=== PATIENT | male | born 1975 | race Two or more races ===

== ENCOUNTER 2017-04-06 08:39 | Observation (INO) | payer OTHER ==
[2017-04-06] MEDS ORDERED: Morphine INJ* 4 MG/ML 1 ML CARPUJECT IV ONE ×2 (09:33→10:41)
[2017-04-06] MEDS ORDERED: Ondansetron INJ* 2 MG/ML VIAL IV ONE ×2 (09:33→10:44)
[2017-04-06] MEDS ORDERED: NS 0.9% 1000 ML* 1,000 ML IV ONE (09:33)
[2017-04-06 09:57] LABS: Hematocrit 39 % (42-52); Hemoglobin 13.4 g/dl (14.0-18.0); Mean Corpuscular HGB Conc 34 g/dl (31-36); Mean Corpuscular Hemoglobin 28 pg (27-31); Mean Corpuscular Volume 82 fL (80-94); Mean Platelet Volume 8 um3 (7.4-10.4); Red Blood Count 4.81 10^6/ul (4.0-5.4); Red Cell Distribution Width 14 % (10.5-15); White Blood Count 8.5 10^3/ul (3.5-10.8)
[2017-04-06 10:37] LABS: BUN/Creatinine Ratio 26.2 (8-20); Calcium 9.1 mg/dL (8.6-10.3); EGFR African American 186.4 (>60); Globulin 3.2 g/dL (2-4); Potassium 3.8 mmol/L (3.5-5.0); Total Bilirubin 0.4 mg/dL (0.2-1.0); Total Protein 7.2 g/dL (6.4-8.9)
--- NOTE | 2017-04-06 11:11 | RAD ---
Indication: Chest pain. Comparison: October 27, 2015 CT abdomen. Technique: Upright AP 1055 hours Report: No focal pulmonary lesion, compelling alveolar consolidation, pleural effusion, pneumothorax. Top normal heart size without significant change. RIGHT and LEFT epicardial fat pads noted. Unremarkable central pulmonary vasculature and mediastinal contours. IMPRESSION: No evidence for acute intrathoracic disease.
--- NOTE | 2017-04-06 12:22 | RAD ---
INDICATION: Right inguinal pain and swelling. COMPARISON: There are no prior studies available for comparison. TECHNIQUE: Multiple real-time images of the testicles were obtained including color Doppler images and Doppler tracings. FINDINGS: The testicles are normal in size, shape and echogenicity. The right testicle measured 4.0 x 2.2 x 2.9 cm and the left testicle measured 4.8 x 2.3 x 3.2 cm. No intratesticular mass is seen. There is symmetric vascular flow within both testicles. There is a 6 mm left epididymal cyst present. In the right inguinal region corresponding to the patient's pain and lump there is a hypoechoic structure measuring 0.5 x 1.0 x 0.5 cm in size. No hernia is seen. IMPRESSION: 1. NO EVIDENCE FOR TESTICULAR TORSION OR EPIDIDYMITIS. 2. THERE IS A SMALL HYPOECHOIC MASS IN THE RIGHT INGUINAL REGION CORRESPONDING TO THE PATIENT'S PAIN AND PALPABLE LUMP. RECOMMEND CLINICAL CORRELATION AND FOLLOW-UP.
[2017-04-06 12:55] LABS: Urine Bilirubin Negative (Negative); Urine Glucose Negative (Negative); Urine Nitrite Negative (Negative)
--- NOTE | 2017-04-06 14:13 | ED ---
Jayden Freeman Thomas, scribed for Dean Raygoza MD on 04/06/17 at 0944 . Abdominal Pain/Male - HPI Summary HPI Summary: The pt is a 41 y/o M presenting to the ED c/o sudden-onset right groin pain s/p an injury today at 03:15 in which he was bending over to lift a 5-pound chain at work and heard a pop. He noticed a golf ball-sized mass in his right inguinal canal that he attempted to reduce, although this caused severe pain. The pain is constant. The pt rates the pain 6/10. The pain is aggravated by palpation and alleviated by nothing. 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 Pt additionally c/o swelling to his testicle and urinary urgency. PMHx: chronic knee pain, chronic back pain, BPH. PSHx: cholecystectomy. SHx: former smoker, no alcohol use. FHx: [place] (two uncles and grandfather in their 50s). 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 He is accompanied by his . - History of Current Complaint Chief Complaint: EDAbdPain Stated Complaint: ABD PAIN/BUMP ON GROIN Time Seen by Provider: 04/06/17 09:25 Hx Obtained From: Patient, Family/Furnace Converter - is in the room Onset/Duration: Sudden Onset, Lasting Hours - onset today at 03:15, Still Present Severity Currently: Moderate Pain Intensity: 6 Pain Scale Used: 0-10 Numeric Location: Groin - right groin Aggravating Factor(s): Other: - Palpation Alleviating Factor(s): Nothing Associated Signs And Symptoms: Positive: Other - Testicular swelling, urinary urgency - Allergies/Home Medications Allergies/Adverse Reactions: Allergies Allergy/AdvReac Type Severity Reaction Status Date / Time Lidocaine [From Lidoderm] Allergy Rash Verified 04/06/17 09:01 PMH/Surg Hx/FS Hx/Imm Hx Previously Healthy: No Endocrine/Hematology History: Denies: Hx Diabetes Cardiovascular History: Denies: Hx Hypertension Musculoskeletal History: Reports: Other Musculoskeletal History - Chronic knee pain, chronic back pain - Surgical History Surgery Procedure, Year, and Place: cholecystectomy Infectious Disease History: No Infectious Disease History: Denies: Traveled Outside the [place] in Last 30 Days - Family History Known Family History: Positive: Other - [place] (two uncles and grandfather in their 50s) - Social History Alcohol Use: Rare Substance Use Type: Reports: None Hx Tobacco Use: Yes Smoking Status (MU): Former Smoker Review of Systems Negative: Fever Positive: Abdominal Pain - Sudden-onset R groin pain when lifting 5-pound chain today at 03:15 Positive: urgency, other - Testicular swelling All Other Systems Reviewed And Are Negative: Yes Physical Exam Triage Information Reviewed: Yes Vital Signs On Initial Exam: Initial Vitals Temp Pulse Resp BP Pulse Ox 96.8 F 75 16 119/92 98 04/06/17 08:50 04/06/17 08:50 04/06/17 08:50 04/06/17 08:50 04/06/17 08:50 Vital Signs Reviewed: Yes Appearance: Positive: Well-Appearing, No Pain Distress Skin: Positive: Dry Head/Face: Positive: Normal Head/Face Inspection Eyes: Positive: EOMI, DENA ENT: Positive: Normal ENT inspection Neck: Positive: Nontender Respiratory/Lung Sounds: Positive: Clear to Auscultation, Breath Sounds Present Cardiovascular: Positive: RRR. Negative: Murmur Abdomen Description: Positive: Nontender Male Genital Exam: Positive: other - right inguinal area with round mass tender above the testes consitent with possible herniated bowel that is incarcerated. Musculoskeletal: Positive: Strength/ROM Intact Neurological: Positive: Sensory/Motor Intact, Alert, Oriented to Person Place, Time, CN Intact II-III Psychiatric: Positive: Normal - Noel Coma Scale Best Eye Response: 4 - Spontaneous Best Motor Response: 6 - Obeys Commands Best Verbal Response: 5 - Oriented Diagnostics - Vital Signs Vital Signs Temp Pulse Resp BP Pulse Ox 04/06/17 08:50 96.8 F 75 16 119/92 98 - Laboratory Result Diagrams: 04/06/17 09:47 04/06/17 09:47 Lab Statement: Any lab studies that have been ordered have been reviewed, and results considered in the medical decision making process. - Radiology CXR Xray Interpretation: No Acute Changes - no evidence for acute intrathoracic disease. ED physician has reviewed this radiology report and agrees. Radiology Interpretation Completed By: Radiologist - EKG 10:56 Cardiac Rate: NL - 63 BPM EKG Interpretation: No STEMI. - Additional Comments Diagnostic Additional Comments: US Testicular. Interpreted by radiologist. Impression: 1. NO EVIDENCE FOR TESTICULAR TORSION OR EPIDIDYMITIS. 2. THERE IS A SMALL HYPOECHOIC MASS IN THE RIGHT INGUINAL REGION CORRESPONDING TO THE PATIENT'S PAIN AND PALPABLE LUMP. RECOMMEND CLINICAL CORRELATION AND FOLLOW-UP. ED physician has reviewed this radiology report and agrees. Re-Evaluation - Re-Evaluation First Eval Re-Evaluation Time: 10:42 Comment: The patient complains of epigastric pain, onset 1035 am. He is tender in the epigastric area on reeval. Second Eval Re-Evaluation Time: 11:27 Change: Improved Comment: Patient has no more epigatric pain at this point. Await US scrotum results. Third Eval Re-Evaluation Time: 13:05 Change: Improved Comment: Both Dr Palacios and Dr George have examined this patient and they do not feel that there is a hernia, and there is nothing to drain or operate on at this time. It is felt this is also not of urological nature. It is recommended to put the patient on antibiotics for possible lymph node infection in this area, and I have discussed with the hospitalists to admit, pain meds, antibiotics and further eval for his episode of chest pain. Abdominal Pain Fem Course/Dx - Course Assessment/Plan: The pt is a 41 y/o M presenting to the ED c/o sudden-onset right groin pain s/p an injury today at 03:15 in which he was bending over to lift a 5-pound chain at work and heard a pop. He noticed a golf ball-sized mass in his right inguinal canal that he attempted to reduce, although this caused severe pain. Pt additionally c/o swelling to his testicle and urinary urgency. Dr. Palacios, surgery, will come to the ED to see the patient. After evaluation of the patient, Dr. Palacios does not believe that the patient has an inguinal hernia. The patient was given IV fluids, morphine, and Zofran. Bloodwork shows Hgb 13.4, Hct 39. UA is negative. EKG shows no STEMI. US Testicular shows 1. NO EVIDENCE FOR TESTICULAR TORSION OR EPIDIDYMITIS. 2. THERE IS A SMALL HYPOECHOIC MASS IN THE RIGHT INGUINAL REGION CORRESPONDING TO THE PATIENT'S PAIN AND PALPABLE LUMP. RECOMMEND CLINICAL CORRELATION AND FOLLOW -UP. ED physician has reviewed this radiology report and agrees. CXR shows no evidence for acute intrathoracic disease. ED physician has reviewed this radiology report and agrees. I consulted with Dr. George, urology, at 12:37 regarding patient care. He will come to the ED to examine the patient. After his evaluation, he suspects skin pathology rather than genital or hernia etiology. I consulted with Dr. Marshall, hospitalist, at 12:57 regarding patient care. He will admit the patient. - Diagnoses Provider Diagnoses: Right groin mass, Chest pain - Provider Notifications Discussed Care Of Patient With: Juan A Palacios Time Discussed With Above Provider: 09:37 - Dr Palacios coming to see the patient. Instructed by Provider To: Other - Dr. Palacios, surgery, will come to the ED to see the patient. After evaluation of the patient, Dr. Palacios does not believe that the patient has an inguinal hernia. I consulted with Dr. George, urology, at 12:37 regarding patient care. He will come to the ED to examine the patient. After his evaluation, he suspects skin pathology rather than genital or hernia etiology. Discharge - Discharge Plan Condition: Good Disposition: ADMITTED TO [facility] documentation as recorded by the Jayden antunez Thomas accurately reflects the service I personally performed and the decisions made by me, Dean Raygoza MD.
[2017-04-06] MEDS ORDERED: Ondansetron INJ* 2 MG/ML VIAL IV PRN (15:07)
[2017-04-06] MEDS ORDERED: oxyCODONE/Acetamin 5/325 MG* TAB PO PRN (15:11)
[2017-04-06] MEDS ORDERED: Zolpidem TAB* 10 MG PO PRN (15:11)
[2017-04-06] MEDS ORDERED: NS 0.9% 1000 ML* 1,000 ML IV SCH (15:15)
[2017-04-06] MEDS ORDERED: oxyCODONE TAB* 5 MG TAB PO PRN (15:27)
[2017-04-06] MEDS: ceFAZolin 2 GM PREMIX (*) 100 ML IVPB SCH (18:32)
--- NOTE | 2017-04-06 21:22 | HP ---
CC: Dr. George; Dr. Palacios; Dr. Paz * HISTORY AND PHYSICAL: DATE OF ADMISSION: 04/06/17 PRIMARY CARE PROVIDER: Dr. Paz. MY ATTENDING PHYSICIAN WHILE IN THE HOSPITAL: Dave Marshall MD * (report dictated by Veronica Azul NP). CONSULTING UROLOGIST: Dr. George. CONSULTING SURGEON: Dr. Palacios. CHIEF COMPLAINT: Right groin bulge, painful. HISTORY OF PRESENT ILLNESS: Mr. Escobar is a 41-year-old male patient who works at [employer] and carries a history of hyperlipidemia, hypertension, and history of chronic upper back pain. He came into the ED today saying he was working the overnight shift at [employer]. He lifted up an engine chain that weighed about 3 to 5 pounds and then he started having some pain in his right groin. He noticed a bulge there. 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 He says that he has not had any fevers or chills and he has not really noticed any erythema, but today he definitely did notice some erythema in the groin where the bulge was. He came into the ER. While here, he did have an episode of chest discomfort, epigastric pain mostly that he described as a burning discomfort that was similar to his pain that he had when he had gallstones. He denied any chest pressure. He says he typically can walk up a flight of stairs. He does not get any chest pain with this. He denied having any abdominal pain. There has been no nausea or vomiting. He denied having any pain in his testicle area. He denied having any fevers or chills. No coughing recently. No shortness of breath. Because of this episode of chest discomfort and a concern for this area of erythema and edema in the right inguinal area, we were asked to evaluate for admission. PAST MEDICAL HISTORY: Significant for: 1. Hyperlipidemia. 2. Depression. 3. Chronic back pain. PAST SURGICAL HISTORY: He has had a laparoscopic cholecystectomy. MEDICATIONS: His home meds according to the list that we were able to obtain include: 1. Percocet 1 tablet every 6 hours as needed. 2. Ambien 10 mg p.o. daily as needed. 3. Vitamin D 1000 units p.o. daily. 4. Cetirizine 10 mg p.o. daily. 5. Zoloft 50 mg a day. 6. Voltaren 50 mg p.o. daily. 7. Topiramate 20 mg daily. 8. Lipitor 80 mg daily. ALLERGIES: Include LIDODERM PATCH. FAMILY HISTORY: Mother had a history of diabetes. Father's history reviewed, noncontributory. SOCIAL HISTORY: He is a former smoker. He does not drink alcohol. He is with children. Surrogate decision maker is his . REVIEW OF SYSTEMS: There is no documented fever. He denied having any significant weight change. There was no ear discharge. He denied having any rhinorrhea. No sore throat. No thyroid enlargement. Denies having any chest pain now; there was some per my HPI. There is no orthopnea. There is no nocturnal dyspnea. There was no abdominal pain. There is right inguinal pain. He denied any nausea or vomiting. No dysuria. No frequency. No seizure. No loss of consciousness. No pruritus and no skin ulcerations. Review of 14 systems completed, all others negative. PHYSICAL EXAMINATION GENERAL: At this time, Mr. Escobar is a 41-year-old male patient. He is morbidly obese. He is sitting in the ER stretcher. He does not appear to be in any acute distress. VITAL SIGNS: Blood pressure 109/62, pulse 72, respirations 18, O2 sat 93%, temperature 96.8. HEENT: Head: Atraumatic. Eyes: EOMs are intact. Sclerae anicteric and not pale. NECK: Supple. Throat: Oral mucosa appears to be moist. No oropharyngeal erythema. LUNGS: Clear to auscultation bilaterally. No wheezes, rales, or rhonchi. HEART: Heart sounds S1 and S2. Regular rate and rhythm. No murmurs, rubs, or gallops. ABDOMEN: Soft, flat, nontender. He does have in the inguinal area and groin area, an area of erythema that is painful to palpation. EXTREMITIES: Pulses are 2+ throughout. He is able to move all 4 extremities with 5/5 strength. NEUROLOGIC: He is awake, alert, and oriented x3. Tongue midline. Satellite Dish Technician are equal. No gross focal deficits. SKIN: Intact. LABORATORY DATA/DIAGNOSTIC STUDIES: The labs today revealed WBC 8.5, hemoglobin 13.4, hematocrit 39, platelet count 227,000. His sodium was 136, potassium 3.8, chloride of 106, bicarb 24, BUN 16, creatinine 0.61, glucose 104 , lactate 0.5, calcium 9.1, total bili 0.4, AST 24, ALT 44, alk phos 83. Troponin 0. Albumin of 4.0. He had a urine which was negative. He had a chest x-ray obtained today which revealed no evidence for acute intrathoracic disease. There was an EKG was obtained today which showed a normal sinus rhythm, rate of 63. No ST elevations or T-wave inversions were noted. No previous for comparison. He had a chest x-ray obtained today which revealed no evidence for acute intrathoracic disease. He did have a testicular ultrasound obtained today which revealed no evidence for testicular torsion or epididymitis. There was a small hypoechoic mass in the right inguinal region corresponding to the patient's pain and palpable lump. Old medical records were reviewed. ASSESSMENT AND PLAN: Mr. Escobar is a 41-year-old male patient coming into the ER today with complaints of a bulge in the inguinal area, pain, fullness, and redness. He was evaluated by our surgical team, Urology, and General Surgery. While here in the ED, he had an episode of burning epigastric chest discomfort. We were asked to evaluate for admission. He will be admitted under observation status for: 1. Chest pain. I suspect his pain is most likely GI related. It was a burning pain. It lasted a few minutes. The patient says he typically gets this when he does not eat. He had not eaten since this morning at 3 in the morning. My plan would be to go ahead and just cycle his troponins and if those are negative and his EKGs are negative, I think he could have an outpatient stress test, but we will keep him on telemetry and follow. 2. Inguinal mass. Again, this could be a folliculitis, could be a small abscess developing. It could also be a hidradenitis. Dr. Palacios will be following the patient. I did discuss with him the possibility of doing a CT imaging. He felt at this point he would like to see this clear itself, but empirically we will put the patient on Ancef 2 g q.8 hours. We will monitor him. Should he have any worsening symptoms, obviously I will get imaging but he appears to be hemodynamically stable at this point. We will continue to follow him closely. 3. Chronic pain. Continue meds as prescribed. 4. Hyperlipidemia. Continue statin therapy. 5. Depression. Continue supportive care. 6. DVT prophylaxis, placed on SCDs. 7. Code status. Full code. 8. Fluids, electrolytes, nutrition. He can have a regular diet. TIME SPENT: On admission was 60 minutes, greater than half the time was spent face- to-face with the patient obtaining my history and physical, other half of the time spent going over the plan of care with the patient and implementing plan of care. I did discuss the plan of care with my attending, Dr. Marshall; he is in agreement. VERONICA AZUL NP [id number]/CPS #: [id number] NANY
[2017-04-06] MEDS ORDERED: Heparin VIAL(*) 5000 UNITS/ML VIAL (FIVE THOUSAND) SUBCUT SCH (22:00)
--- NOTE | 2017-04-06 22:20 | CONS ---
CONSULTATION NOTE: DATE OF CONSULT: 04/06/17 HISTORY OF PRESENT ILLNESS: I was asked by Dr. Raygoza, emergency room physician , to see this 41-year-old male because of right groin swelling and pain. Mr. Escobar presented to the emergency room today because of sudden onset of a tender mass in the right groin. This seemed to have occurred after some lifting. There was no associated testicular pain and no voiding symptoms. He did not have any flank pain or tenderness. Because of the severity of the pain, patient went to the emergency room where he was evaluated. He required strong pain meds for control of his pain. Scrotal ultrasound was obtained, which showed normal testes. There was no evidence of hernias. General Surgery consultation was obtained and the patient was seen by Dr. Palacios, who felt that the condition is not related to an inguinal hernia. Urology consultation was recommended. PAST HISTORY: Relevant for past history of renal calculus disease. He had passed a right ureteral calculus spontaneously in November 2015 and had no recurrent calculi. He has been asymptomatic from his voiding. PHYSICAL EXAM: On physical exam, he is lying comfortably in bed. Abdominal exam is normal. External genitalia: no penile lesions. Testes feel normal bilaterally. No inguinal hernias felt. There is a 3-cm tender mass located in the right groin just lateral to the upper right scrotal skin. The mass seems to be within the skin itself and not intrascrotal. No fluctuation. The rest of his examination was normal. IMPRESSION: Probable infected right groin sweat gland. No evidence of any testicular or spermatic cord pathology. RECOMMENDATIONS: Recommendation is for antibiotics, and cephalosporin will be a good choice. Heating pad will also help. The patient is going to be admitted because of atypical chest pain, and he will receive IV antibiotics and pain medication for control. I will recheck him in the morning to assess his response to treatment. [id number]/CPS #: [id number] MTDD
--- NOTE | 2017-04-07 01:14 | CONS ---
CONSULTATION REPORT: DATE OF CONSULT: 04/06/17 REFERRING PROVIDER: Dakotah Azul NP REASON FOR CONSULTATION: Lump in lower right groin area. HISTORY OF PRESENT ILLNESS: Mr. 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 He had no nausea , vomiting, and generalized abdominal discomfort. He has never been told he has had a hernia before. He had no urinary complaints, no change in bowel habits and when he presented to the emergency room was concerned that he may have had an incarcerated right inguinal hernia. When seen in the emergency room, he also developed some chest discomfort and epigastric pain. He described this similar to a discomfort he had prior to having his gallbladder removed. He is noted to have a normal white blood cell count and laboratory workup including normal troponins. He underwent a testicular ultrasound, which showed no evidence of testicular torsion or epididymitis. There appeared to be a small hypoechoic mass in the right inguinal region corresponding to the patient' s pain and lump. Surgical consultation was obtained. PAST MEDICAL HISTORY: 1. Hyperlipidemia. 2. Obesity. 3. Depression. 4. Chronic back pain. PAST SURGICAL HISTORY: Laparoscopic cholecystectomy. MEDICATIONS: Include: 1. Percocet. 2. Ambien. 3. Vitamin D. 4. Cetirizine. 5. Zoloft. 6. Voltaren. 7. Topiramate. 8. Lipitor. ALLERGIES: Include LIDODERM PATCH. SOCIAL HISTORY: He is a former. He does not drink alcohol. He is with children. Works at [employer]. PHYSICAL EXAM: Temperature 98.2, pulse 64, and blood pressure 113/73. In general, he is an obese male with normal attention and grooming. His lungs with diminished breath sounds throughout. His abdomen is soft and protuberant. There is no tenderness. I appreciate no hernias. He had normoactive bowel sounds throughout in both the right and left groin. I appreciate no inguinal or femoral hernias. There is no testicular swelling or mass. In the area between the groin and the scrotum along the spermatic cord, there is a subcutaneous nodule perhaps 1 to 2 cm. There is no overlying redness or fluctuance and it is only mildly tender. IMPRESSION: Subcutaneous nodule in the right low groin just above the scrotum. There is no evidence of inguinal or femoral hernias. Dr. George from Urology has seen him and does not feel it is an epididymitis or a testicular torsion and certainly there clinically does not appear to be such. I am not certain of the etiology. This may all be just a subcutaneous infection that may progress to abscess. He has been admitted for his cardiac evaluation and was started on IV antibiotics. At this point, I recommend continued observation. He should be discharged home on oral antibiotics with surgical followup. Certainly if it becomes increased in size, more fluctuant, red, may require a drainage, but for now I would administer only antibiotics. Thank you very much for the consultation. [id number]/LALIT #: [id number] NANY
[2017-04-07] MEDS: ceFAZolin 2 GM PREMIX (*) 100 ML IVPB SCH ×2 (01:57→09:53)
[2017-04-07 05:20] LABS: Hematocrit 37 % (42-52); Hemoglobin 12.4 g/dl (14.0-18.0); Mean Corpuscular HGB Conc 34 g/dl (31-36); Mean Corpuscular Hemoglobin 28 pg (27-31); Mean Corpuscular Volume 82 fL (80-94); Mean Platelet Volume 8 um3 (7.4-10.4); Red Blood Count 4.46 10^6/ul (4.0-5.4); Red Cell Distribution Width 14 % (10.5-15); White Blood Count 6.8 10^3/ul (3.5-10.8)
[2017-04-07 05:31] LABS: BUN/Creatinine Ratio 20.6 (8-20); Calcium 8.2 mg/dL (8.6-10.3); EGFR African American 179.6 (>60); EGFR Non-African American 139.7 (>60); HDL Cholesterol 30.6 mg/dL; Potassium 3.8 mmol/L (3.5-5.0)
[2017-04-07] MEDS ORDERED: Diclofenac Sodium EC TAB* 25 MG PO SCH (08:30)
[2017-04-07] MEDS ORDERED: Sertraline* 50 MG TAB PO SCH (09:00)
[2017-04-07] MEDS ORDERED: Atorvastatin* 80 MG TAB PO SCH (09:00)
[2017-04-07] MEDS ORDERED: Cetirizine* 10 MG TAB PO SCH (09:00)
[2017-04-07] MEDS ORDERED: TOPIRAMATE 200 MG PO SCH (09:00)
[2017-04-07 11:27] VITALS: BP 120/68
--- NOTE | 2017-04-07 12:55 | PN ---
Subjective Date of Service: 04/07/17 Interval History: Patient seen and examined at bedside. Pt states that the chest discomfort has resolved, he often gets this discomfort after he eats and lays down. Denies fever, chills, shortness of breath, chest discomfort, N/V/D. Pt states that he continues to have some right groin discomfort when ambulating, but feels that the nodule is decreasing in size. Tele: Sinus rhythm, rate 70's. pt was noted to have sinus marina while sleeping with heart rate down to 50's. Family History: Unchanged from Admission Social History: Unchanged from Admission Past Medical History: Unchanged from Admission Objective Active Medications: Atorvastatin Calcium (Lipitor*) 80 mg PO DAILY [facility] Cetirizine HCl (Zyrtec*) 10 mg PO DAILY [facility] Reason: Protocol Diclofenac Sodium (Voltaren Ec Tab*) 50 mg PO DAILY WITH MEAL [facility] Sodium Chloride (Ns 0.9% 1000 Ml*) 1,000 mls @ 125 mls/hr IV PER RATE [facility] Cefazolin Sodium/Dextrose (Kefzol 2 Gm Premix(*)) 100 mls @ 200 mls/hr IVPB Q8H [facility] Nf: Topiramate [ Topiramate Er 200 Mg Cap] 200 Mg) 200 mg PO DAILY [facility] Ondansetron HCl (Zofran Inj*) 4 mg IV Q6H PRN Reason: NAUSEA Oxycodone HCl (Roxycodone Tab*) 5 mg PO Q6H PRN Reason: PAIN Oxycodone/Acetaminophen (Percocet 5/325 Tab*) 1 tab PO Q6H PRN Reason: PAIN Sertraline HCl (Zoloft*) 50 mg PO DAILY [facility] Zolpidem Tartrate (Ambien Tab*) 10 mg PO BEDTIME PRN Reason: SLEEP Vital Signs 04/06/17 04/06/17 04/06/17 15:07 15:30 16:00 Temperature Pulse Rate 73 70 74 Respiratory Rate Blood Pressure 109/62 108/71 105/69 (mmHg) O2 Sat by Pulse 93 95 94 Oximetry 04/06/17 04/06/17 04/06/17 16:30 17:00 17:50 Temperature 98.2 F Pulse Rate 71 68 64 Respiratory 20 Rate Blood Pressure 106/64 113/73 (mmHg) O2 Sat by Pulse 96 95 97 Oximetry 1004/06/17 04/07/17 19:24 23:26 03:21 Temperature 98.0 F 97.8 F Pulse Rate 67 62 Respiratory 20 16 16 Rate Blood Pressure 101/57 112/69 (mmHg) O2 Sat by Pulse 97 97 Oximetry 04/07/17 04/07/17 07:25 11:26 Temperature 98.2 F 97.8 F Pulse Rate 60 70 Respiratory 16 16 Rate Blood Pressure 94/70 120/68 (mmHg) O2 Sat by Pulse 95 98 Oximetry Oxygen Devices in Use Now: None Appearance: NAD, sitting up in bed Ears/Nose/Mouth/Throat: Mucous Membranes Moist Respiratory: Symmetrical Chest Expansion and Respiratory Effort, Clear to Auscultation Cardiovascular: NL Sounds; No Murmurs; No JVD, RRR Abdominal: NL Sounds; No Tenderness; No Distention Extremities: No Edema Skin: - - Nodule in right groin ~ size of a large marble Neurological: Alert and Oriented x 3, NL Muscle Strength and Tone Lines/Tubes/Other Access: Clean, Dry and Intact Peripheral IV - site benign Nutrition: Taking PO's Result Diagrams: 04/07/17 05:10 04/07/17 05:10 Assess/Plan/Problems-Billing Assessment: Mr. Escobar is a 41 yo male with PMH significant for HLD, depression, and chronic back pain who presented to the emergency room with complaints of right groin swelling and chest discomfort. - Patient Problems (1) Chest pain Code(s): R07.9 - CHEST PAIN, UNSPECIFIED SNOMED Code(s): 35299983 Comment: - Resolved - Suspect secondary to GERD - Troponin 0.00 x 3 - Possible outpatient stress test, will defer to PCP (2) Inguinal nodule Code(s): R19.09 - OTHER INTRA-ABDOMINAL AND PELVIC SWELLING, MASS AND LUMP SNOMED Code(s): 976990311 Comment: - Decreased in size from yesterday - Still painful with ambulation - Switch to Keflex 500 mg BID (3) HLD (hyperlipidemia) Code(s): E78.5 - HYPERLIPIDEMIA, UNSPECIFIED SNOMED Code(s): 35099582 Comment: - Lipids WNL - Continue statin (4) Depression Code(s): F32.9 - MAJOR DEPRESSIVE DISORDER, SINGLE EPISODE, UNSPECIFIED SNOMED Code(s): 00012991 Comment: - Supportive care (5) Chronic pain Code(s): G89.29 - OTHER CHRONIC PAIN SNOMED Code(s): 79770079 Comment: - Continue home medications (6) DVT prophylaxis Code(s): YIX7944 - SNOMED Code(s): 643565838 (7) Full code status Code(s): Z78.9 - OTHER SPECIFIED HEALTH STATUS SNOMED Code(s): 743178402 Status and Disposition: OBV. Stable for discharge to home today.
--- NOTE | 2017-04-08 11:31 | DS ---
CC: Dr. Marcio Paz * DISCHARGE SUMMARY: DATE OF ADMISSION: 04/06/17 DATE OF DISCHARGE: 04/07/17 ATTENDING PHYSICIAN: Dr. Irina Banuelos * (dictated by Erlinda Bowen NP). PRIMARY CARE PROVIDER: Dr. Marcio Paz. PRIMARY DIAGNOSES: 1. Chest discomfort, suspect secondary to acid reflux. 2. Right groin nodule, suspect folliculitis and hidradenitis. CONSULTATIONS WHILE IN THE HOSPITAL: 1. Dr. Yaniv George with Urology. 2. Dr. Juan A Palacios with General Surgery. STUDIES WHILE IN THE HOSPITAL: 1. Testicular ultrasound on 04/06/17. Radiologist's impression: No evidence for testicular torsion or epididymitis. There is a small hypoechoic mass in the right inguinal region corresponding to the patient's pain and palpable lump. Recommend clinical correlation and followup. 2. Chest x-ray on 04/06/17. Radiologist's impression: No evidence for active intrathoracic disease. DISCHARGE MEDICATIONS: New home medication: 1. Keflex 500 mg oral twice daily for 9 more days. Continued home medications: 1. Percocet 10/325 one tablet oral every 6 hours as needed for pain. 2. Ambien 10 mg oral daily at bedtime as needed for insomnia. 3. Vitamin D 1000 units oral daily. 4. Zyrtec 10 mg oral daily. 5. Zoloft 50 mg oral daily. 6. Diclofenac sodium 500 mg oral daily. 7. Topiramate ER 200 mg oral daily. 8. Atorvastatin 80 mg oral daily. HISTORY OF PRESENT ILLNESS/HOSPITAL COURSE: Mr. Escobar is a 41-year-old male with past medical history significant for hyperlipidemia, hypertension, and chronic back pain who presented to the emergency room after lifting an engine chain weighing about 3 to 5 pounds and developing pain in his right groin. He then noticed a bulge there. 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 The patient states that he does do heavy lifting for work. He denied any fever or chills. He had not noticed any erythema recently, but did definitely notice the bulge in his right groin. The patient also experienced an episode of chest discomfort that he described as an epigastric pain and a burning sensation similar to that when he had gallstones in the past. He denied any chest pressure. He typically is able to walk upstairs and does not get chest pain with this. He denied any abdominal pain, nausea, vomiting, shortness of breath. While in the emergency room, the patient had a chest x-ray showing no evidence of acute intrathoracic disease. He had an EKG showing normal sinus rhythm. There was no previous EKG for comparison. There were no acute signs of ischemia noted. The patient had a testicular ultrasound showing no evidence for testicular torsion or epididymitis. The patient was seen in consultation by Dr. George with Urology, who felt this was a probable infected right groin sweat gland. He recommended antibiotics and a heating pad. The patient was also seen in consultation by Dr. Palacios. The hospitalists were asked to evaluate the patient for admission due to his chest discomfort. While in the hospital, the patient was also seen in consultation by Dr. Palacios who felt that the subcutaneous nodule in his right groin showed no evidence of an inguinal or femoral hernia. He felt that the etiology was unclear and could be a subcutaneous infectious process that may progress to an abscess. It was recommended that the patient be placed on IV antibiotics and observed. During the patient's time in the hospital, he felt as though the nodule decreased in size, although it was still painful with ambulation. The patient had 3 troponins that were negative. His chest discomfort had resolved. Mr. Escobar is stable for discharge to home today. PHYSICAL EXAMINATION: Vital signs are as follows: Temperature 97.8, heart rate 70, respiratory rate 16, O2 sat 98% on room air, blood pressure 120/68. DISCHARGE PLAN: Mr. Escobar will be discharged to home. ACTIVITY: As tolerated. DIET: Regular. As far as the patient's chest discomfort, I suspect this is secondary to acid reflux. I offered to start the patient on a PPI such as Protonix or Prilosec, and the patient would like to wait and discuss this with his primary care provider, . He has a followup appointment already scheduled for April 10, at 9 a.m. As far as the right groin nodule, I suspect that this could be a folliculitis or a hidradenitis. For now, the patient will be continued on Keflex 500 mg oral twice daily for 9 more days. He should follow up with Dr. [place] if the area becomes larger or more red. He can apply heat as needed for discomfort. The patient has been asked to return to the emergency room for any chest pain, shortness of breath. This is a summarized report of a complex medical history and hospital stay. For further details, please see the entire medical record. TIME SPENT: Time for this discharge was approximately 50 minutes, greater than half of that was spent [id number] with the patient, discussing discharge plans and instructions. CONDITION ON DISCHARGE: Stable. Reviewed by OLAYINKA JAIMES 04/14/17 1719 [id number]/[facility] #: [id number] NANY
== END 2017-04-07 13:32 | disposition home or self-care (01) ==
LOC: ED 08:39 → MEDTELE 15:03
PROVIDERS: ADMIT Internal Medicine; ATTEND Hospitalist
DX: R07.89 Other chest pain (principal); R22.9 Localized swelling, mass and lump, unspecified; N50.811 Right testicular pain; Z87.891 Personal history of nicotine dependence; Z79.899 Other long term (current) drug therapy; R10.13 Epigastric pain; E78.5 Hyperlipidemia, unspecified
CPT/HCPCS: 36415; 71010; 76870; 80048; 80053; 80061; 81003; 83036; 83605; 83690; 84484; 85025; 85610; 93005; 96361; 96365; 96366; 96375; 96376; 99283; A9270-GY; G0378; J0690; J2270; J2405